=== PATIENT | female | born 1980 | race Caucasian/White ===

== ENCOUNTER 2018-09-21 18:17 | Emergency (ER) | payer BC ==
--- OUTSIDE RECORDS SUMMARY | 2018-09-21 18:28 | XMS REPORT | Continuity of Care Document ---
:1980 External Reference #:[id number] Author Name Vicky Armijo MD Address [address] [place] [address] Care Team Providers Name Role Phone Vicky Armijo MD Care Team Information Deposit Refund Clerk Unavailable Payers Date Identification Numbers Payment Provider Subscriber Effective: 2016 Policy Number: [id number] [facility] Phillip Hallip Chata PayID: [id number] [address] [place] [address] Expires: 2016 Policy Number: [id number] MAITE Brizuela PayID: [id number] [address] [place] [address] Advance Directives Description No Information Available Problems Description No Active Problems Family History Description No Information Available Social History Type Date Description Comments Sex Unknown Occupation Homemaker Tobacco Use Start: Unknown Never Smoked Cigarettes Smoking Status Reviewed: 09/19/18 Never Smoked Cigarettes ETOH Use Occasionally consumes alcohol Tobacco Use Start: Unknown Patient has never smoked Contraceptive Methods Current methods include tubal with essure ligation Allergies, Adverse Reactions, Alerts Active Allergies Reaction Severity Comments Date Penicillins 10/05/2012 Amoxicillin 10/05/2012 Medications Active Medications SIG Qnty Indications Ordering Provider Date Clindamycin HCL 1 by mouth three 30caps R07.0 Vicky Armijo 09/19/2018 300mg times a day MD Abigail Capsules Work Note patient was seen Vicky Armijo 09/19/2018 in our office MD Abigail today 09/19 Citalopram take 1 tablet by 90tabs F41.9 Melanie Giordano 01/21/2018 Hydrobromide mouth one time C RN [employer] 10mg Tablets daily Alprazolam 1/2-1 tabs as 30tabs F41.9 Vicky Armijo 0.25mg Tablets needed every 6-8 MMD hours for anxiety History Medications Naproxen 1 by mouth 60tabs S60.211A Vicky Armijo 07/12/2018 - 500mg twice a day as MD Abigail 07/27/2018 Tablets needed Azithromycin 2 tabs day one 6tabs H66.91 Vicky Armijo 04/23/2017 - 250mg and 1 tab daily MD Abigail 07/12/2018 Tablets till gone Benzonatate 1 by mouth 14caps H66.91 Vicky Armijo 04/23/2017 - 100mg three times a MD Abigail 07/12/2018 Capsules day as needed cough Azithromycin 2 tabs on day 6tabs Vicky Armijo 08/27/2015 - 250mg 1. one tab by MD Abigail 04/23/2017 Tablets mouth 2-5 Minastrin 24 Fe Vicky Armijo 07/09/2015 - MD Abigail 04/23/2017 1-20mg-mcg(24) Chewtabs Azithromycin 2 tabs day one 1tabs J01.00 Vicky Armijo 07/09/2015 - 250mg and 1 tab daily MD Abigail 04/23/2017 Tablets till gone Fluticasone 2 sprays in 16gm J01.00 Vicky Armijo 07/09/2015 - Propionate each nostril MD Abigail 04/23/2017 50mcg/Act daily Suspension Work Note pl excuse from J01.00 Vicky Armijo 07/09/2015 - work today and MD Abigail 04/23/2017 tomm No Active Unknown 02/23/2014 - Medications 07/09/2015 No Active Melanie Giordano 10/05/2012 - Medications Nathanael RN [employer] 10/05/2012 Prednisone 3 tabs for 5 30tabs 692.6 Melanie Giordano 10/05/2012 - 10mg days, 2 tabs Nathanael RN [facility] 02/23/2014 Tablets for 5 days 1 tab for 5 days Immunizations CPT Code Status Date Vaccine Lot # [id number] Given 03/29/2018 Flu Vaccine NOS [id number] Given 04/19/2014 Tdap (Adacel) Ages 7 And Above Only Vital Signs Date Vital Result Comment 09/19/2018 9:01am Weight 188.25 lb Heart Rate 86 /min BP Systolic 139 mmHg BP Diastolic 93 mmHg Height 62 inches 5'2" BMI (Body Mass Index) 34.4 kg/m2 07/12/2018 1:26pm Weight 189.00 lb Heart Rate 71 /min BP Systolic 129 mmHg BP Diastolic 78 mmHg Height 62 inches 5'2" BMI (Body Mass Index) 34.6 kg/m2 02/09/2018 12:56pm Weight 179.25 lb Heart Rate 58 /min BP Systolic 122 mmHg BP Diastolic 73 mmHg Height 62 inches 5'2" BMI (Body Mass Index) 32.8 kg/m2 01/21/2018 12:22pm Weight 178.25 lb Heart Rate 74 /min BP Systolic 142 mmHg BP Diastolic 80 mmHg Height 62 inches 5'2" BMI (Body Mass Index) 32.6 kg/m2 04/23/2017 11:21am Body Temperature 98.9 F Weight 175.00 lb Heart Rate 68 /min BP Systolic 128 mmHg BP Diastolic 74 mmHg Height 62 inches 5'2" BMI (Body Mass Index) 32.0 kg/m2 08/27/2015 11:43am Body Temperature 98.3 F Weight 163.12 lb Heart Rate 109 /min BP Systolic 134 mmHg BP Diastolic 82 mmHg Height 62 inches 5'2" BMI (Body Mass Index) 29.8 kg/m2 07/09/2015 9:31am Body Temperature 98.6 F Weight 164.00 lb Heart Rate 76 /min BP Systolic 110 mmHg BP Diastolic 76 mmHg Height 62 inches 5'2" BMI (Body Mass Index) 30.0 kg/m2 02/22/2014 11:01am Body Temperature 99.0 F Weight 181.00 lb Heart Rate 75 /min BP Systolic 130 mmHg BP Diastolic 83 mmHg Height 62 inches 5'2" BMI (Body Mass Index) 33.1 kg/m2 10/05/2012 11:04am Weight 171.00 lb Heart Rate 79 /min BP Systolic 132 mmHg BP Diastolic 82 mmHg Results Test Date Facility Test Result H/L Range Note Laboratory test finding 09/19/2018 [facility] Anti-Streptolysn <pending> O -RL Laboratory test finding 09/19/2018 [facility] TSH <pending> Procedures Description No Information Available Encounters Type Date Location Provider Dx Diagnosis Office Visit 07/12/2018 1:40p Cristóbal Barajas PA F41.9 Anxiety disorder, unspecified S60.211A Contusion of RIGHT wrist, initial encounter Z68.34 Body mass index (BMI) 34.0-34.9, adult Office Visit 02/09/2018 1:00p Melanie Vaughn, F41.9 Anxiety disorder, RN [facility] unspecified Z68.32 Body mass index (BMI) 32.0-32.9, adult Office Visit 01/21/2018 11:20a Melanie Vaughn, F41.9 Anxiety disorder, RN [employer] unspecified Z23 Encounter for immunization Z68.32 Body mass index (BMI) 32.0-32.9, adult Office Visit 04/23/2017 11:15a Vicky Bartholomew J01.00 Acute maxillary MMD sinusitis, unspecified H66.91 Otitis media, unspecified, RIGHT ear Office Visit 08/27/2015 11:40a Yvon Brennan PA J06.9 Acute upper respiratory infection, unspecified Office Visit 07/09/2015 9:15a Vicky Bartholomew J01.00 Acute maxillary MMD sinusitis, unspecified Office Visit 02/22/2014 10:40a Shira Tierney MD 465.9 URI Upper Respiratory Infections Acute Unspec Sites Office Visit 10/05/2012 11:00a Melanie Vaughn, 692.6 Dermatitis Contact Due RN [facility] To Plants (Except Food) Plan of Treatment Future Appointment(s):10/21/2018 10:00 am - Cristóbal Ni PA at [id number] - Vicky Arimjo MDE66.9 Obesity, iyzbltbftwiE89.83 Other fatigueFollow up:mos with SB as PE/EVR07.0 Pain in throatNew Medication: Clindamycin HCL 300 mg - 1 by mouth three times a dayR03.0 Elevated blood- pressure reading, without diagnosis of kzjvncJ38.9 Anxiety disorder, tqkvmzaueoqM23.220 Encounter for screening for lipoid rpcvrufcqF68.34 Body mass index (BMI) 34.0-34.9, adult
--- NOTE | 2018-09-21 19:53 | ED ---
Complex/Multi-Sys Presentation - HPI Summary HPI Summary: Patient is a 37-year-old female who presents emergency department for ongoing sore throat, headache and fatigue. Patient states she has been done with recurrent strep throat infections. She states she was also strep throat about one month ago was on Zithromax and started on Clindamycin this week. Patient states she saw her family doctor who did blood work and mono screen. Patient states it mono screen came back positive. Patient presents today because she is not feeling any better and continues to have fatigue. Pt. also notes SOB on exertion and a sharp pain in lungs with inspiration. Denies cough. She denies neck pain and fever, vomiting, diarrhea, urinary symptoms. She does note mild upper abdominal pain. Symptoms are mild in severity. No current modifying factors. No significant past medical history. - History Of Current Complaint Chief Complaint: EDGeneral Time Seen by Provider: 09/21/18 19:13 Hx Obtained From: Patient - Allergies/Home Medications Allergies/Adverse Reactions: Allergies Allergy/AdvReac Type Severity Reaction Status Date / Time amoxicillin Allergy Anaphylatic Verified 09/21/18 18:23 Shock Penicillins Allergy Anaphylatic Verified 09/21/18 18:23 Shock PMH/Surg Hx/FS Hx/Imm Hx Previously Healthy: Yes - Surgical History Surgery Procedure, Year, and Place: hysterectomy, 2 knee surgeries, screwes to rt leg Infectious Disease History: No Infectious Disease History: Denies: Traveled Outside the [place] in Last 30 Days - Family History Known Family History: Positive: None, Non-Contributory - Social History Occupation: Works From/At Home Lives: With Family Alcohol Use: Occasionally Substance Use Type: Reports: None Smoking Status (MU): Never Smoked Tobacco Review of Systems Positive: Chills. Negative: Fever Eyes: Negative Positive: Sore Throat Cardiovascular: Negative Positive: Shortness Of Breath. Negative: Cough Positive: Abdominal Pain. Negative: Vomiting, Diarrhea, Nausea Genitourinary: Negative Negative: dysuria, flank pain, hematuria Positive: Myalgia Skin: Negative Negative: Rash Positive: Headache All Other Systems Reviewed And Are Negative: Yes Physical Exam Triage Information Reviewed: Yes Vital Signs On Initial Exam: Initial Vitals Temp Pulse Resp BP Pulse Ox 98.8 F 71 17 132/89 100 09/21/18 18:19 09/21/18 18:19 09/21/18 18:19 09/21/18 18:19 09/21/18 18:19 Vital Signs Reviewed: Yes Appearance: Positive: Well-Appearing - Pt. sitting on bed in NAD. present. Skin: Positive: Warm, Dry Head/Face: Positive: Normal Head/Face Inspection Eyes: Positive: Normal, EOMI, JONNIE, Conjunctiva Clear ENT: Positive: TMs normal, Other - Mild bilateral tonsilar edema without excudate. Uvula is midline without deviation. No trismus or drooling. Neck: Positive: Supple, Nontender, Enlarged Nodes @ - anterior bilateral cervical.. Negative: Nuchal Rigidity Respiratory/Lung Sounds: Positive: Clear to Auscultation, Breath Sounds Present. Negative: Rales, Rhonchi, Wheezes Cardiovascular: Positive: Normal, RRR. Negative: Murmur Abdomen Description: Positive: Other: - Abd. is soft with mild tenderness to L and R upper quadrants. Neurological: Positive: Normal, CN Intact II-III Psychiatric: Positive: Affect/Mood Appropriate Diagnostics - Vital Signs Vital Signs Temp Pulse Resp BP Pulse Ox 09/21/18 18:19 98.8 F 71 17 132/89 100 - Laboratory Result Diagrams: 09/21/18 19:59 09/21/18 19:59 Lab Statement: Any lab studies that have been ordered have been reviewed, and results considered in the medical decision making process. Complex Multi-Symp Course/Dx Course Of Treatment: Pt. presenting with ongoing fatigue. Pt. states she tested positive for mono this week. No signs of tonsilar abscess on exam. Pt. afebrile and well appearing. Basic labs and urine obtained and negative. Negative ddimer. Suspect sxs are secondary to mono. Advised pt. to increase fluids and rest. Motrin for discomfort as directed. Close f.u with PCP. No contact sports until cleared by PCP. To return to ER if sxs change or worsen. Pt. understands and agrees with plan. - Diagnoses Provider Diagnoses: Mononucleosis Discharge - Sign-Out/Discharge Documenting (check all that apply): Patient Departure Patient Received Moderate/Deep Sedation with Procedure: No - Discharge Plan Condition: Good Disposition: HOME Patient Education Materials: Mononucleosis (ED), Strep Throat (ED) Referrals: Melanie Giordano [Primary Care Provider] - Additional Instructions: Schedule a follow up appointment with your PCP Increase fluids and rest Ibuprofen for discomfort as directed Return to ER if symptoms change or worsen - Billing Disposition and Condition Condition: GOOD Disposition: Home
[2018-09-21 20:05] LABS: ABS Basophils 0.1 10^3/ul (0-0.2); ABS Eosinophils 0.3 10^3/ul (0-0.6); ABS Lymphocytes 3.7 10^3/ul (1.0-4.8); ABS Monocytes 0.8 10^3/ul (0-0.8); ABS Neutrophils 7.4 10^3/ul (1.5-7.7); ABS Nucleated RBC 0 10^3/ul; Eosinophil % 2.1 %; Hematocrit 43 % (33-41); Hemoglobin 13.9 g/dL (12.0-16.0); Lymphocyte % 30.1 %; Mean Corpuscular HGB Conc 32 g/dL (31-36); Mean Corpuscular Hemoglobin 29 pg (27-31); Mean Corpuscular Volume 90 fL (80-97); Mean Platelet Volume 8.7 fL (7.4-10.4); Nucleated Red Blood Cells % 0.1; Platelet Count 322 10^3/uL (150-450); Red Blood Count 4.78 10^6 /uL (3.70-4.87); Red Cell Distribution Width 13 % (10.5-15); White Blood Count 12.2 10^3/uL (3.5-10.8)
[2018-09-21 20:25] LABS: Albumin 4.2 g/dL (3.2-5.2); Albumin/Globulin Ratio 1.3 (1-3); BUN/Creatinine Ratio 20.3 (8-20); Calcium 9.2 mg/dL (8.6-10.3); EGFR African American 99.6 (>60); EGFR Non-African American 82.3 (>60); Globulin 3.2 g/dL (2-4); Total Bilirubin 0.2 mg/dL (0.2-1.0); Total Protein 7.4 g/dL (6.4-8.9)
[2018-09-21 20:32] LABS: Urine Appearance Turbid; Urine Bilirubin Negative (Negative); Urine Blood Negative (Negative); Urine Color Yellow; Urine Glucose Negative (Negative); Urine Ketones Negative (Negative); Urine Nitrite Negative (Negative); Urine Protein Negative (Negative); Urine Specific Gravity 1.017 (1.010-1.030); Urine Urobilinogen Negative (Negative)
[2018-09-21 20:49] LABS: Potassium 4.6 mmol/L (3.5-5.0)
[2018-09-21 21:31] VITALS: BP 104/52
== END 2018-09-21 21:30 | disposition home or self-care (01) ==
LOC: ED 18:17
DX: B27.90 Infectious mononucleosis, unspecified without complication (principal); Z88.0 Allergy status to penicillin; Z88.3 Allergy status to other anti-infective agents
CPT/HCPCS: 36415; 80053; 81003; 85025; 85379; 99282